=== PATIENT | male | born 1995 | race Two or more races ===

== ENCOUNTER 2018-02-02 19:05 | Outpatient (CLI) | payer OTHER ==
[2018-02-02 19:41] VITALS: BMI 33.9
== END 2018-02-02 19:06 | disposition left against medical advice (07) ==
LOC: AMBL 19:05
PROVIDERS: ATTEND Emergency Medicine
DX: M54.2 Cervicalgia (principal); V43.52XA Car driver injured in collision with other type car in traffic accident, initial encounter

== ENCOUNTER 2018-02-02 19:27 | Emergency (ER) ==
[2018-02-02 19:41] VITALS: BP 150/88; TEMP 99.3; BMI 33.9
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
== END 2018-02-02 21:15 | disposition home or self-care (01) ==
LOC: ED 19:27
DX: R07.89 Other chest pain (principal); M54.2 Cervicalgia; V43.52XA Car driver injured in collision with other type car in traffic accident, initial encounter
CPT/HCPCS: 36415; 80053; 82550; 82553; 84484; 85025; 93005; 93010; 99283

== ENCOUNTER 2018-02-04 12:57 | Outpatient (CLI) | payer OTHER | END 2018-02-04 12:58 | disposition home or self-care (01) | LOC: RHC-LAB 12:57 | PROVIDERS: ATTEND Emergency Medicine | DX: K76.0 Fatty (change of) liver, not elsewhere classified (principal); R74.8 Abnormal levels of other serum enzymes; V89.2XXD Person injured in unspecified motor-vehicle accident, traffic, subsequent encounter | CPT/HCPCS: 36415; 80053; 82550; 82553 ==